=== PATIENT | female | born 1950 | race Hispanic/Latino ===

== ENCOUNTER 2018-01-03 15:31 | Outpatient (CLI) | payer MEDICARE, BC | END 2018-01-03 15:32 | disposition home or self-care (01) | LOC: BICMAMMO 15:31 | PROVIDERS: ATTEND Physician Assistant | DX: Z12.31 Encounter for screening mammogram for malignant neoplasm of breast (principal) | CPT/HCPCS: 77063; 77067 ==

== ENCOUNTER 2018-01-14 10:51 | Emergency (ER) | payer MEDICARE, BC ==
[2018-01-14] MEDS ORDERED: Acetaminophen 500 MG TAB ONE (11:15)
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
== END 2018-01-14 12:10 | disposition home or self-care (01) ==
LOC: SCSER 10:51
DX: S09.90XA Unspecified injury of head, initial encounter (principal); I10 Essential (primary) hypertension; E03.9 Hypothyroidism, unspecified; W01.0XXA Fall on same level from slipping, tripping and stumbling without subsequent striking against object, initial encounter; Y92.000 Kitchen of unspecified non-institutional (private) residence as the place of occurrence of the external cause
CPT/HCPCS: 70450

== ENCOUNTER 2018-12-27 15:49 | Emergency (ER) | payer BC ==
[2018-12-27] MEDS ORDERED: Morphine 4 MG/ML VIAL ONE (16:13)
[2018-12-27] MEDS ORDERED: Ketorolac Tromethamine 30 MG/ML VIAL ONE (16:13)
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
== END 2018-12-27 17:53 | disposition home or self-care (01) ==
LOC: ERS 15:49
DX: S06.9X1A Unspecified intracranial injury with loss of consciousness of 30 minutes or less, initial encounter (principal); S00.03XA Contusion of scalp, initial encounter; I10 Essential (primary) hypertension; V89.2XXA Person injured in unspecified motor-vehicle accident, traffic, initial encounter
CPT/HCPCS: 70450; 71045; 96374; 96375; J1885; J2270

== ENCOUNTER 2021-01-14 15:01 | Outpatient (CLI) | payer BC | END 2021-01-14 15:02 | disposition home or self-care (01) | LOC: BICMAMMO 15:01 | PROVIDERS: ATTEND Family Medicine | DX: Z12.31 Encounter for screening mammogram for malignant neoplasm of breast (principal) | CPT/HCPCS: 77063; 77067 ==

== ENCOUNTER 2022-11-16 14:49 | Outpatient (CLI) | payer MEDICARE | END 2022-11-16 14:50 | disposition home or self-care (01) | LOC: BICMAMMO 14:49 | PROVIDERS: ATTEND Family Medicine | DX: Z12.31 Encounter for screening mammogram for malignant neoplasm of breast (principal) | CPT/HCPCS: 77063; 77067 ==

== ENCOUNTER 2023-12-21 14:43 | Outpatient (CLI) | payer MEDICARE | END 2023-12-21 14:44 | disposition home or self-care (01) | LOC: BICMAMMO 14:43 | PROVIDERS: ATTEND Family Medicine | DX: Z12.31 Encounter for screening mammogram for malignant neoplasm of breast (principal) | CPT/HCPCS: 77063; 77067 ==

== ENCOUNTER 2024-06-10 19:58 | Observation (INO) | payer MEDICARE ==
[~2024-06-10 19:58] MED LIST: Iopamidol-370 76% 500 ML MDV (1 ML CHARGE) ONE
[2024-06-10 20:40] LABS: Bacteria/HPF None Seen HPF (None Seen); Bilirubin Negative (Negative); Blood, Urine Negative (Negative); CAUTI Indications for Culture Pelvic or flank pain; Clarity Clear (Clear); Glucose, Urine (Dipstick) Normal (Negative); Ketone, Urine Negative (Negative); Leukocyte 250 Leu/uL (Negative); Nitrite Negative (Negative); Protein, Urine (Dipstick) Negative (Neg-Trace); RBC/HPF 0-3 HPF (0-3); Specific Gravity, Urine 1.026 (1.002-1.036); Squamous Epithelial 0-3 HPF (0-3); Urobilinogen 6 mg/dL (Less than 2)
[2024-06-10 21:02] LABS: #Basophils Less than 0.03 10x3/uL (0.0-0.2); %Basophils 0.2 % (0.0-1.0); %Eosinophils 1.1 % (0.0-10.0); %Lymphocytes 13.8 % (21.0-51.0); %Monocytes 4.1 % (0.0-10.0); %Neutrophils 80.5 % (42.0-75.0); Hematocrit 36.7 % (36.0-47.0); Hemoglobin 12.3 g/dL (12.0-16.0); Mean Corpuscular HGB CONC 33.5 g/dL (32.0-36.0); Mean Corpuscular Volume 89.5 fL (78.0-98.0); Mean Platelet Volume 11.1 fL (7.4-10.4); Platelet Count 218 10x3/uL (130-400); RBC Distribution Width 13.1 % (11.5-14.5)
[2024-06-10 21:11] LABS: Urine Culture Reflex Yes Yes
[2024-06-10 21:20] LABS: ALT (SGPT) 132 U/L (Less than 34); AST (SGOT) 309 U/L (11-34); Albumin 3.7 g/dL (3.1-4.5); Alkaline Phosphatase 108 U/L (40-110); Anion Gap 12 mmol/L (10-20); BUN (Urea Nitrogen) 19 mg/dL (9.8-20.1); Calc. Creatinine Clearance 0 mL/min (70-130); Calcium 9.3 mg/dL (7.8-10.44); Carbon Dioxide 24 mmol/L (23-31); Chloride 107 mmol/L (98-107); Estimated GFR 78; Globulin 3.2 g/dL (2.4-3.5); Glucose 138 mg/dL (83-110); Lipase 44 U/L (8-78); Potassium 4.3 mmol/L (3.5-5.1); Protein, Total 6.9 g/dL (5.8-8.1); Sodium 139 mmol/L (136-145)
[2024-06-10 21:21] LABS: Troponin I Less than 0.010 ng/mL (< 0.028)
[2024-06-11] MEDS ORDERED: Morphine 4 MG/ML VIAL SLOW IVP PRN (05:05)
[2024-06-11] MEDS ORDERED: Sodium Chloride 0.9% 100 ML ONE (05:09)
[2024-06-11] MEDS ORDERED: Piperacillin/Tazobactam 3.375 GM VIAL ONE (05:09)
[2024-06-11] MEDS ORDERED: Sodium Chloride 0.9% 1,000 ML IV SCH (05:15)
[2024-06-11] MEDS ORDERED: Dextrose 50% Abboject 50 ML SYRINGE SLOW IVP PRN (06:57)
[2024-06-11] MEDS ORDERED: Glucagon 1 MG/ML KIT IM PRN (06:57)
[2024-06-11] MEDS ORDERED: Ondansetron PF 4 MG/2 ML Vial IVP PRN (06:57)
[2024-06-11] MEDS ORDERED: Dextrose 5% in Water 1,000 ML IV PRN (06:57)
[2024-06-11] MEDS ORDERED: traMADol HCl 50 MG TAB PO PRN (06:57)
[2024-06-11] MEDS ORDERED: Ondansetron ODT 4 MG TAB PO PRN (06:57)
[2024-06-11] MEDS ORDERED: fentaNYL PF 100 MCG/2 ML SYRINGE ONE (07:41)
[2024-06-11] MEDS: Acetaminophen 325 MG TAB PO SCH (08:00)
[2024-06-11] MEDS: Lactated Ringer's 1,000 ML IV SCH (08:00)
[2024-06-11] MEDS ORDERED: EPINEPHrine 1 MG/ML VIAL ONE (08:29)
[2024-06-11] MEDS ORDERED: Bupivacaine 0.25% HCL 30 ML VIAL ONE (08:29)
[2024-06-11] MEDS: Famotidine 20 MG TAB PO SCH (09:00)
[2024-06-11] MEDS: HYDROmorphone 0.5 MG/0.5 ML SYRINGE SLOW IVP SCH (09:00)
[2024-06-11] MEDS ORDERED: Lidocaine 2% PF 5 ML VIAL ONE (09:13)
[2024-06-11] MEDS ORDERED: PROPOFOL 20 ML ONE (09:13)
[2024-06-11] MEDS ORDERED: Dexamethasone 4 mg/ml Vial ONE (09:13)
[2024-06-11] MEDS ORDERED: Rocuronium Bromide 10 MG/ML (10ML VIAL) ONE (09:13)
[2024-06-11] MEDS ORDERED: ePHEDrine/0.9% NaCl/PF SYRINGE 50 mg/10 ml ONE (09:13)
[2024-06-11] MEDS ORDERED: Ondansetron PF 4 MG/2 ML Vial ONE (09:13)
[2024-06-11] MEDS ORDERED: fentaNYL 50 mcg/mL 1 mL Vial ONE ×2 (09:18→09:57)
[2024-06-11] MEDS ORDERED: Ketorolac Tromethamine 30 MG (1 mL) VIAL ONE (09:19)
[2024-06-11] MEDS ORDERED: Promethazine HCl 25 MG/ML VIAL IM PRN (09:34)
[2024-06-11] MEDS ORDERED: Ondansetron HCl/PF 4 MG/2 ML Vial IVP PRN (09:34)
[2024-06-11] MEDS ORDERED: Meperidine HCl/PF 25 MG/ML VIAL SLOW IVP PRN (09:34)
[2024-06-11] MEDS ORDERED: HYDROmorphone 2 MG/ML VIAL SLOW IVP PRN (09:34)
[2024-06-11] MEDS ORDERED: SUGAMMADEX SODIUM 200 MG/2 ML VIAL ONE ×2 (09:59→10:10)
[2024-06-11] MEDS: Piperacillin/Tazobactam 3.375 GM in Sodium Chloride 0.9% 100 ML IVPB SCH (10:00)
[2024-06-11] MEDS: TETANUS, DIPHTHERIA TOX,ADULT (TDVAX) 0.5 ML VIAL IM ONE (16:08)
[2024-06-11 16:09] VITALS: BMI 32.3
[2024-06-11 16:59] VITALS: BP 120/79; TEMP 98.3
[2024-06-11] MEDS ORDERED: Acetaminophen/Codeine 30-300mg Tablet PO PRN (17:27)
== END 2024-06-11 18:24 | disposition home or self-care (01) ==
LOC: ERS 19:58 → SURG B 06-11 04:59
PROVIDERS: ADMIT Specialist; ATTEND Specialist
PROC: 0FT44ZZ Resection of Gallbladder, Percutaneous Endoscopic Approach (ICD-10-PCS; principal; 2024-06-10)
DX: K80.12 Calculus of gallbladder with acute and chronic cholecystitis without obstruction (principal); I10 Essential (primary) hypertension; Z79.899 Other long term (current) drug therapy
CPT/HCPCS: 47562; 71045; 74177; 76705; 80053; 81001; 83690; 84484; 85025; 87086; 93005; C1889; G0378 ×2; J0171; J0665; J1100; J1885; J2405; J2543; J2704; J3010; Q9967; 88304; 96365

== ENCOUNTER 2024-12-16 15:14 | Outpatient (CLI) | payer MEDICARE | END 2024-12-16 15:15 | disposition home or self-care (01) | LOC: BICMAMMO 15:14 | PROVIDERS: ATTEND Family Medicine | DX: Z78.0 Asymptomatic menopausal state (principal) | CPT/HCPCS: 77080 ==